=== PATIENT | male | born 1990 | race Caucasian/White ===

== ENCOUNTER 2020-06-13 19:38 | Emergency (ER) | payer SELFPAY ==
[2020-06-13 19:39] VITALS: BP 130/75; PULSE 102; RESP 16; TEMP 36.8; O2SAT 100; BMI 21.4
--- NOTE | 2020-06-13 19:54 | RAD_ITS ---
STUDY: X-RAY - RIGHT TIBIA AND FIBULA REASON FOR EXAM: Male, 30 years old. RIGHT LOWER LEG PAIN AFTER FALL ONE WEEK AGO TECHNIQUE: 2 view(s) of the tibia and fibula were obtained. COMPARISON: None. FINDINGS: Normal visualized tibia. Normal visualized fibula. The soft tissue structures are unremarkable. RAD/Tibia & Fibula 2 Views IMPRESSION: Normal x-ray examination of the tibia and fibula. Electronically Signed: Susana Schroeder MD at 20:18 EDT Tel , Service support ,
--- NOTE | 2020-06-13 19:55 | RAD_ITS ---
STUDY: X-RAY - RIGHT FOOT CLINICAL: Male, 30 years old. RIGHT LOWER LEG PAIN AFTER FALL ONE WEEK AGO TECHNIQUE: 3 view(s) of the foot. COMPARISON: None. FINDINGS: Normal talus, calcaneus, and tarsal bones. Normal visualized subtalar, talonavicular, calcaneocuboid, tarsal and tarsometatarsal articulations. Normal metatarsi. Normal metatarsophalangeal joint of the great toe. Normal tibial and fibular sesamoid bones. Normal interphalangeal joint of the great toe. Normal phalanges of the great toe. Normal second through fifth metatarsophalangeal joints. Normal interphalangeal joints and phalanges of the lesser toes. The soft tissue structures are unremarkable. RAD/Foot min 3 Views IMPRESSION: Normal x-ray examination of the foot. Electronically Signed: Susana Schroeder MD at 20:16 EDT Tel , Service support ,
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
[2020-06-13] MEDS: Diphth,Pertuss(Acell),Tet Vac 0.5 ML Vial IM (20:22)
[2020-06-13] MEDS: Ibuprofen 600 MG Tablet PO (20:23)
== END 2020-06-13 20:47 ==
PROVIDERS: Emergency Provider Emergency Medicine
DX: S81.801A Unspecified open wound, right lower leg, initial encounter (principal); S80.11XA Contusion of right lower leg, initial encounter; S93.601A Unspecified sprain of right foot, initial encounter; Y93.55 Activity, bike riding
CPT/HCPCS: 73590; 73630; 90471; 90715; 99284